=== PATIENT | female | born 1955 | race African-American/Black ===

== ENCOUNTER → 2018-12-07 | Outpatient (CLI) | payer BC ==
[~2018-12-07] VITALS: Ht 162.6 cm; Wt 120.2 kg
[~2018-12-07] MED LIST: AMLODIPINE BESY10 MG PO; COLACE100 MG PO; CRESTOR40 MG PO; FARXIGA5 MG PO; HYDRALAZINE 10M10 MG PO; NEXIUM40 MG PO; PLAVIX 75 MG TA75 M1 PO; SINGULAIR 10 MG10 M1 PO; TELMISARTAN80 MG PO; TRULICITY0.75 MG/0. SUBQ; ZYRTEC10 M4 PO
[2018-12-07 09:46] VITALS: BP 117/64
--- NOTE | 2018-12-07 15:22 | EKG ---
[place] [address] [place] [address] ELECTROCARDIOGRAM REPORT Name: MARE TOBIAS [id number] ������������������ Admission: 12/07/18 ������������������ Attend Phys: Sai Chopra Discharge: ������������������ Date of : 57 Report #: [id number] ����������������������������������������������������������������� [id number] THIS REPORT FOR: //name// [facility] Test Date: 2018-12-07 Test Time: 09:48:09 Pat Name: MARE TOBIAS Department: Room: Gender: F [employer] Monitor: Maryjane MCDANIEL : 1955 Requested By: Sia Chopra Order Number: [id number] MD: David Britton Measurements Intervals [place] Rate: 83 P: 50 VA: 154 QRS: 18 QRSD: 101 T: 12 QT: 386 QTc: 454 Interpretive Statements Sinus rhythm Normal tracing No previous ECG available for comparison Electronically Signed On 12-07-2018 15:21:52 CDT by David Britton [email or web address] ��������������������������������������������� <ELECTRONICALLY SIGNED> ���������������������������������������� By: David Britton MD, [facility] ��������������������������������������������� 12/07/18 1521 0948 0948 David Britton MD, FACC /EPI
--- NOTE | 2018-12-12 10:10 | CATHLAB ---
[facility] [address] [place] [address] INVASIVE PROCEDURE REPORT Name: MARE TOBIAS Room #: REG [facility]#: [id number] ������������� Admission: 12/07/18 ������������� Attend Phys: Sai Whitman Discharge: ��� ������������� ��� Date of : 57 Date of Service: 12/12/18 1010 �� Report #: [id number] �������� ��������������������������������������������[id number] THIS REPORT FOR: //name// APPROVED REPORT Study performed: 12/07/2018 12:23:39 Patient Details The patient is a 63 year-old female Event Personnel Sai Chopra Home Service Advisor, Marisela Peacock RN RN, Lidia Ralph Jackson, Valisa Monitor Procedures Performed Left Heart Cath w/or w/o Coronaries [id number] [facility] supervision of conscious sedation Indication Positive stress test, Chest pain Procedure Narrative The Right Groin^ was infiltrated with 1% Lidocaine subcutaneous anesthesia. A PINNACLE 4FR Sheath #[id number] sheath was inserted into the RFA^. Coronary angiography was performed using coronary diagnostic catheters. The right coronary system was accessed and visualized with a JR4 catheter. The left coronary system was accessed and visualized with a JL4 catheter. The left ventricle was accessed and visualized with a PIGTAIL catheter. Hemostasis was obtained with manual pressure following sheath removal without any complications. The patient tolerated the procedure well and there were no complications associated with the procedure. There was no hematoma. Intraoperative Conscious Sedation Sedation start time: 1236 Case end Time: 1256 Versed 2 mg Fluoro Time: 3.37 minutes Dose: DAP 6375.00 cGycm2 893 mGy Contrast Type and Amount: Omnipaque 40 ml Coronary Angiography The patient's coronary anatomy is left dominant. [facility] [address] [place] [address] INVASIVE PROCEDURE REPORT Name: JATINDERMARE RAMÓN Room #: REG [facility]#: [id number] ������������� Admission: 12/07/18 ������������� Attend Phys: Sai Whitman Discharge: ��� ������������� ��� Date of : 57 Date of Service: 12/12/18 1010 �� Report #: [id number] �������� ��������������������������������������������[id number] Diagnostic Cath Left Main The left main is nonexistent with the left anterior descending and left circumflex having separate ostium LAD Large caliber type III vessel which courses in the anterior interventricular sulcus giving rise to branches as it terminates in the posterior aspect of the left ventricle. History of significant high-grade lesions. Diagonal 1 Moderate caliber short length vessel coursing along the anterolateral wall with only luminal irregularities noted. Prior stent is identified in this vessel that has only a less than 20% restenosis Circumflex Large caliber dominant vessel which courses in the AV groove gives rise to a large lateral wall marginal branch free of high-grade disease. The vessel then courses posterior leg giving rise to posterior descending artery. No high-grade lesions are identified. OM1 Moderate to large caliber vessel coursing on the lateral aspect of the heart. High-grade disease L PDA Moderate to large caliber vessel coursing the posterior interventricular sulcus free of high-grade disease Right Coronary All caliber nondominant vessel without significant stenosis Left Ventriculography Left Ventriculography was not performed. Hemodynamics The aortic pressure is 134/81 mmHg with a mean of 106 mmHg. The left ventricular pressure is 150/4 mmHg with a mean of mmHg. The left ventricular end diastolic pressure is 22 mmHg. Conclusion 1. Coronary disease minimal consisting of mild plaquing 2. Normal hemodynamics Recommendations Cardiac Risk Reduction Program Medical Therapy ��������������������������������������������� <ELECTRONICALLY SIGNED> ���������������������������������������� By: Sai Chopra MD ��������������������������������������������� 12/12/18 1010 1010 1010 Sai Chopra MD /INF
== END | disposition home or self-care (01) ==
LOC: CATH 09:16
DX: I25.10 Atherosclerotic heart disease of native coronary artery without angina pectoris (principal); I10 Essential (primary) hypertension; E78.00 Pure hypercholesterolemia, unspecified; I25.2 Old myocardial infarction; E11.9 Type 2 diabetes mellitus without complications; E78.5 Hyperlipidemia, unspecified; Z98.890 Other specified postprocedural states; Z79.899 Other long term (current) drug therapy; Z82.49 Family history of ischemic heart disease and other diseases of the circulatory system